=== PATIENT | male | born 1975 ===

== ENCOUNTER 2022-03-14 00:29 | Inpatient (IN) ==
[~2022-03-14 00:29] MED LIST: CLOPIDOGREL BISULFATE 75 MG TAB PO SCH
[2022-03-14] MEDS ORDERED: niCARdipine HCL INJ 2.5 MG/ML 10 ML AMP ONE (00:41)
[2022-03-14] MEDS ORDERED: HEPARIN (PORCINE) 1000 UNIT/ML 10 ML (CATH LAB USE ONLY) ONE ×2 (00:41→01:18)
[2022-03-14] MEDS ORDERED: NITROGLYCERIN/D5W 100MCG/ML 20ML SYR ONE (00:42)
[2022-03-14] MEDS ORDERED: fentaNYL citrate 100 MCG/2 ML VIAL ONE (00:42)
[2022-03-14] MEDS ORDERED: MIDAZOLAM HCL 1 MG/ML 2ML VIAL ONE (00:42)
--- NOTE | 2022-03-14 00:48 | Pre Anesthesia Assessment ---
Date of Service March 14, 2022 Pre Sedation Assessment Vital Signs Pulse Resp BP Pulse Ox O2 Del Method 03/14/22 00:38 92 Room Air 03/14/22 00:32 Room Air 03/14/22 00:32 81 20 140/99 92 Room Air 03/14/22 00:32 Room Air Cardiovascular RRR, no murmur, no edema Respiratory normal respiratory effort, lungs clear to auscultation Pre-Sedation Airway Assessment Smoking Status: Current every day smoker Hx Sleep Apnea: No Hx Difficult Intubation: No Short, Thick Neck: No Thyromental Distance: > or= 3.5 Finger Breadths Oral Cavity: + WNL Mallampati Class: III ASA: ASA4 Procedure Planning Contraindications for Sedation: none Current Medications Reviewed: Yes Notes The planned sedation has been discussed with the patient. Informed Consent was obtained. I have identified the patient, determined the appropriateness of sedation and have assessed the patient immediately prior to the procedure. All medicine(s) and interventions are by my order.
[2022-03-14 00:49] LABS: Hematocrit (blood only) 47.9 % (40.1-51.0); Hemoglobin 16.2 g/dl (14.0-18.0); Mean Corpuscular Hemoglobin 29.6 pg (25.0-34.0); Mean Corpuscular Hgb Conc 33.8 g/dL (32.0-36.0); Mean Corpuscular Volume 87.4 fL (80.0-100.0); Mean Platelet Volume 9.9 fL (9.4-12.4); Platelet Count 328 K/uL (130-400); RDW Coefficient of Variation 13.2 % (11.5-14.5); RDW Standard Deviation 42.1 fL (36.4-46.3); Red Blood Count 5.48 M/uL (4.63-6.08); White Blood Count 12.31 K/ul (4.8-10.8)
--- NOTE | 2022-03-14 00:51 | Emergency Department Note ---
Impression & Plan STEMI (ST elevation myocardial infarction) To [facility] with Dr. Salas ED Provider Note NAME: ARISTEO MCGRAW AGE: 46 SEX: M ARRIVES VIA: Ambulance INFORMANT: Patient ED PROVIDER(S): Lorna Rosenberg DO CHIEF COMPLAINT: Chest pain PLAN: Disposition: To the [facility] with Dr. Salas Condition: Critical MEDICAL DECISION MAKING: This is a 46-year-old male patient presents to the emergency department by EMS having chest pain. He was noted to have a STEMI. The patient will go to the [facility] with Dr. Salas. The patient remained hemodynamically stable in the emergency department until he went to the [facility]. He received aspirin and nitroglycerin from EMS. EMS called in with the report in route from [facility]. A heart alert was called based on the prehospital EKG of ST segment elevation in the inferior leads. I Emergently evaluated him upon his arrival here in the emergency department. Triage Nursing notes reviewed and agree with them Vital Signs: reviewed and stable Differential diagnosis: STEMI; aortic dissection; alcohol intoxication; GERD Diagnostics interpreted by me: ECG: Significant ST segment elevation in 2 3 and aVF with reciprocal changes in 1 and aVL; sinus bradycardia at a rate of Cardiac Monitoring: Normal sinus rhythm at a rate of 81 Laboratory studies: See below Imaging studies: As per my interpretation Chest x-ray: Patient did not take a good inspiration but there appears to be some vascular congestion. HPI: 46/M arrives for evaluation of chest pain. The patient describes waking from sleep with severe burning chest discomfort that he is never experienced before. The patient got episode in front of the air conditioner and felt as if he could not cool down. He states that the chest pain/pressure became worse and he called 911. His father had a massive [place] at the age of 50. Patient denies any health history personally. He does not see a doctor. He does drink alcohol. In fact tonight, he had 7-8 beers. The patient stopped drinking alcohol around 7 PM. ROS: See above HPI for pertinent positives & negatives. A total of 10 systems reviewed and were otherwise negative. PAST MEDICAL HISTORY:None PAST SURGICAL HISTORY:See Below FAMILY HISTORY:See Below SOCIAL HISTORY:The patient does drink alcohol fairly regularly; he is self- employed; he does smoke HOME MEDICATIONS:None ALLERGIES:None VITALS:See Below PHYSICAL EXAMINATION: HEENT: Head - normocephalic and atraumatic. Pupils are equal, round, and reactive to light. Extraocular eye muscles are intact, and sclera are anicteric. Nose - moist nasal mucosa without discharge. Mouth - moist buccal mucosa. Oropharynx is nonerythematous and there is no tonsillar exudate or edema noted. Neck: Supple; no JVD, or cervical lymphadenopathy Heart: Regular rate and rhythm. There is a normal S1 and S2 with no murmurs, clicks, or gallops appreciated. Lungs: Clear to auscultation bilaterally with no wheezes, rales, or rhonchi. Abdomen: Soft, completely nontender, nondistended, with good bowel sounds. There are no palpable pulsatile masses or hepatosplenomegaly. There is no guar ding, rigidity, or rebound noted. Extremities: No evidence of cyanosis, clubbing, or edema. There are easily palpable peripheral pulses. Skin: Pale, slightly cyanotic, cool, and dry with good turgor and no rashes. ED COURSE: Times/Reassessments: The patient was evaluated in room A1. A heart alert had been called. Laboratory studies were drawn. In addition IV site was established. A portable chest x-ray was performed. An order was placed for continuous cardiac monitoring. The patient was in a normal sinus rhythm at a rate of 81. Report was received from EMS at the bedside. Discussed the case with Dr. Salas at the bedside. I have personally spent greater than 30 minutes of critical care time in the direct management of this patient. This includes bedside care, interpretation of diagnostic studies, and testing, discussion with consultants, patient, and family members, and other required patient management activities. This 30 minutes is in excess of all separately billable procedures. 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 Beliefs That Will Affect Care: None marital status: Single Current Living Situation: Alone Feels Safe at Home: Yes Assistive Devices: None Allergies Allergies Allergy/AdvReac Type Severity Reaction Status Date / Time No Known Allergies Allergy Unverified 03/14/22 03:12 Results & Data (ED) Vital Signs Vital Signs - 24 hr 03/14/22 00:32 03/14/22 00:32 03/14/22 00:32 Pulse Rate 81 Pulse Rate from SpO2 Sensor Respiratory Rate 20 Respiratory Effort / Characteristics Non-Labored Non-Labored Respiratory Depth Normal Normal Blood Pressure 140/99 Blood Pressure Mean 112 Pulse Oximetry 92 Oxygen Delivery Method Room Air Room Air Room Air Sepsis Recent Fever Within 48 Hours No Sepsis New/Unexplained Change in Mental Status N/A Sepsis Action Taken by Nursing No Action Required Pulse Oximetry Post Tiitration 92 03/14/22 00:38 03/14/22 00:34 03/14/22 00:40 Pulse Rate 91 H 84 Pulse Rate from SpO2 Sensor 91 H 87 Respiratory Rate 27 H 15 Respiratory Effort / Characteristics Respiratory Depth Blood Pressure Blood Pressure Mean Pulse Oximetry 92 93 92 Oxygen Delivery Method Room Air Sepsis Recent Fever Within 48 Hours Sepsis New/Unexplained Change in Mental Status Sepsis Action Taken by Nursing Pulse Oximetry Post Tiitration 03/14/22 00:43 03/14/22 00:43 03/14/22 00:45 Pulse Rate 81 73 Pulse Rate from SpO2 Sensor 85 73 Respiratory Rate 25 H 23 Respiratory Effort / Characteristics Respiratory Depth Blood Pressure 135/92 Blood Pressure Mean 106 Pulse Oximetry 92 95 Oxygen Delivery Method Sepsis Recent Fever Within 48 Hours Sepsis New/Unexplained Change in Mental Status Sepsis Action Taken by Nursing Pulse Oximetry Post Tiitration Laboratory Data Result diagrams: 03/14/22 05:41 03/14/22 05:41 Lab Results 03/14/22 03/14/22 03/14/22 Range/Units 00:38 00:38 00:44 WBC 12.31 H (4.8-10.8) K/ul RBC 5.48 (4.63-6.08) M/uL Hgb 16.2 (14.0-18.0) g/dl Hct 47.9 (40.1-51.0) % MCV 87.4 (80.0-100.0) fL MCH 29.6 (25.0-34.0) pg MCHC 33.8 (32.0-36.0) g/dL RDW Std Deviation 42.1 (36.4-46.3) fL RDW Coeff of Abby 13.2 (11.5-14.5) % Plt Count 328 (130-400) K/uL MPV 9.9 (9.4-12.4) fL Immature Gran % (Auto) 0.5 % Neut % (Auto) 37.0 % Lymph % (Auto) 53.2 % [place] % (Auto) 5.9 % Eos % (Auto) 2.8 % Baso % (Auto) 0.6 % Neut # (Auto) 4.55 (1.4-6.5) K/uL Lymph # (Auto) 6.55 H (1.2-3.4) K/uL [place] # (Auto) 0.73 (0.24-0.82) K/uL Eos # (Auto) 0.35 (0-0.50) K/uL Baso # (Auto) 0.07 (0-0.2) K/uL Immature Gran # (Auto) 0.06 H (0.00-0.02) K/uL Activ Coag Time Kaolin (94-140) SECONDS Sodium 137 (136-145) mmol/L Potassium 3.4 L (3.5-5.1) mmol/L Chloride 99 (98-107) mmol/L Carbon Dioxide 28 (21-32) mmol/L Anion Gap 10 (3-11) BUN 10 (6-23) mg/dl Creatinine 1.08 (0.6-1.4) mg/dl Est Cr Clr Drug Dosing 95.7 ml/min Est GFR ( Amer) 94.2 ml/min Est GFR (Non-Af Amer) 81.3 ml/min BUN/Creatinine Ratio 9.3 L (10-20) Glucose 98 (70-99(Fasting)) mg/dl Calcium 9.2 (8.5-10.1) mg/dl Total Bilirubin 0.3 (0.2-1.0) mg/dl AST 20 (13-39) U/L ALT 21 (7-52) U/L Alkaline Phosphatase 77 (34-104) U/L Troponin I High Sens 33.9 H (0-20) pg/ml Total Protein 7.0 (6.0-8.3) gm/dl Albumin 4.5 (3.4-5.0) gm/dl Globulin 2.5 (2.5-4.0) gm/dl Albumin/Globulin Ratio 1.8 (0.9-2) Lipase 28 (11-82) U/L SARS-CoV-2, RNA, NAAT NEGATIVE (NEGATIVE) 03/14/22 03/14/22 Range/Units 01:14 01:42 WBC (4.8-10.8) K/ul RBC (4.63-6.08) M/uL Hgb (14.0-18.0) g/dl Hct (40.1-51.0) % MCV (80.0-100.0) fL MCH (25.0-34.0) pg MCHC (32.0-36.0) g/dL RDW Std Deviation (36.4-46.3) fL RDW Coeff of Abby (11.5-14.5) % Plt Count (130-400) K/uL MPV (9.4-12.4) fL Immature Gran % (Auto) % Neut % (Auto) % Lymph % (Auto) % [place] % (Auto) % Eos % (Auto) % Baso % (Auto) % Neut # (Auto) (1.4-6.5) K/uL Lymph # (Auto) (1.2-3.4) K/uL [place] # (Auto) (0.24-0.82) K/uL Eos # (Auto) (0-0.50) K/uL Baso # (Auto) (0-0.2) K/uL Immature Gran # (Auto) (0.00-0.02) K/uL Activ Coag Time Kaolin 248 H 237 H (94-140) SECONDS Sodium (136-145) mmol/L Potassium (3.5-5.1) mmol/L Chloride (98-107) mmol/L Carbon Dioxide (21-32) mmol/L Anion Gap (3-11) BUN (6-23) mg/dl Creatinine (0.6-1.4) mg/dl Est Cr Clr Drug Dosing ml/min Est GFR ( Amer) ml/min Est GFR (Non-Af Amer) ml/min BUN/Creatinine Ratio (10-20) Glucose (70-99(Fasting)) mg/dl Calcium (8.5-10.1) mg/dl Total Bilirubin (0.2-1.0) mg/dl AST (13-39) U/L ALT (7-52) U/L Alkaline Phosphatase (34-104) U/L Troponin I High Sens (0-20) pg/ml Total Protein (6.0-8.3) gm/dl Albumin (3.4-5.0) gm/dl Globulin (2.5-4.0) gm/dl Albumin/Globulin Ratio (0.9-2) Lipase (11-82) U/L SARS-CoV-2, RNA, NAAT (NEGATIVE) Administered Medications Aspirin (Aspirin 81 Mg Ectab) 81 mg PO [facility] Stop: 04/13/22 08:59 Last Admin: 03/14/22 07:53 Dose: 81 mg Documented By: VIRGIL Atorvastatin Calcium (Atorvastatin 40 Mg Tab) 80 mg PO [facility] Stop: 04/13/22 08:59 Last Admin: 03/14/22 07:53 Dose: 80 mg Documented By: VIRGIL Folic Acid (Folic Acid 1 Mg Tab) 1 mg PO [facility] Stop: 04/13/22 08:59 Last Admin: 03/14/22 08:25 Dose: 1 mg Documented By: VIRGIL Lisinopril (Lisinopril 5 Mg Tab) 5 mg PO [facility] Stop: 04/13/22 08:59 Last Admin: 03/14/22 07:53 Dose: 5 mg Documented By: VIRGIL Pantoprazole Sodium (Pantoprazole 40 Mg Tab) 40 mg PO [facility] Stop: 04/13/22 08:59 Last Admin: 03/14/22 07:53 Dose: 40 mg Documented By: VIRGIL Thiamine HCl (Thiamine Hcl 100 Mg Tab) 100 mg PO [facility] Stop: 04/13/22 08:59 Last Admin: 03/14/22 08:25 Dose: 100 mg Documented By: VIRGIL Ticagrelor (Ticagrelor 90 Mg Tab) 90 mg PO BID [facility] Stop: 03/14/22 23:55 Last Admin: 03/14/22 12:55 Dose: 90 mg Documented By: VIRGIL Discontinued Medications Atropine Sulfate (Atropine Sulfate 0.1 Mg/Ml 10ml Syr) Confirm Administered Dose 1 mg IV .STK-MED ONE Stop: 03/14/22 01:09 Last Admin: 03/14/22 02:26 Dose: Not Given Documented By: SUSAN Fentanyl Citrate (Fentanyl Citrate 100 Mcg/2 Ml Vial) Confirm Administered Dose 100 mcg .ROUTE .STK-MED ONE Stop: 03/14/22 00:43 Last Admin: 03/14/22 02:24 Dose: Not Given Documented By: SUSAN Heparin Sodium (Porcine) (Heparin (Porcine) 1000 Unit/Ml 10 Ml ([facility] Use Only)) Confirm Administered Dose 10,000 units .ROUTE .STK-MED ONE Stop: 03/14/22 00:42 Last Admin: 03/14/22 02:24 Dose: Not Given Documented By: SUSAN Heparin Sodium (Porcine) (Heparin (Porcine) 1000 Unit/Ml 10 Ml ([facility] Use Only)) Confirm Administered Dose 10,000 units .ROUTE .STK-MED ONE Stop: 03/14/22 01:19 Last Admin: 03/14/22 02:26 Dose: Not Given Documented By: SUSAN Heparin Sodium/Sodium Chloride (Heparin In Nss Infusion 1000 Unit/500 Ml (2 U/Ml) Bag) Confirm Administered Dose 3,000 units IV .STK-MED ONE Stop: 03/14/22 00:43 Last Admin: 03/14/22 02:25 Dose: Not Given Documented By: SUSAN Sodium Chloride (Nss 1000ml) 1,000 mls @ 100 mls/hr IV .Q10H [facility] Stop: 03/14/22 11:44 Last Infusion: 03/14/22 10:44 Dose: 0 mls/hr Documented By: Admin: 03/14/22 02:26 Dose: 100 mls/hr Documented By: SUSAN Metoprolol Tartrate (Metoprolol Tartrate 25 Mg Tab) 12.5 mg PO BID [facility] Stop: 04/13/22 08:59 Last Admin: 03/14/22 08:25 Dose: 12.5 mg Documented By: Admin: 03/14/22 03:28 Dose: 12.5 mg Documented By: VIRGIL Metoprolol Tartrate (Metoprolol Tartrate 25 Mg Tab) 12.5 mg PO ONE ONE Stop: 03/14/22 11:20 Last Admin: 03/14/22 12:54 Dose: 12.5 mg Documented By: VIRGIL Midazolam HCl (Midazolam Hcl 1 Mg/Ml 2ml Vial) Confirm Administered Dose 2 mg .ROUTE .STK-MED ONE Stop: 03/14/22 00:43 Last Admin: 03/14/22 02:25 Dose: Not Given Documented By: SUSAN Miscellaneous Information (Patient's Allergy Info Needs Entered) 1 each N/A Q30M [facility] Stop: 04/13/22 02:59 Last Admin: 03/14/22 03:13 Dose: 1 each Documented By: VIRGIL Nicardipine HCl (Nicardipine Hcl Inj 2.5 Mg/Ml 10 Ml Amp) Confirm Administered Dose 25 mg .ROUTE .[email or web address] ONE Stop: 03/14/22 00:42 Last Admin: 03/14/22 02:24 Dose: Not Given Documented By: SUSAN Nitroglycerin/Dextrose (Nitroglycerin/D5w 100mcg/Ml 20ml Syr) Confirm Administered Dose 2,000 mcg .ROUTE .[employer]-MED ONE Stop: 03/14/22 00:43 Last Admin: 03/14/22 02:25 Dose: Not Given Documented By: SUSAN Ticagrelor (Ticagrelor 90 Mg Tab) Confirm Administered Dose 180 mg .ROUTE .[employer]- [employer] ONE Stop: 03/14/22 01:44 Last Admin: 03/14/22 01:51 Dose: 180 mg Documented By: ALLAN Imaging Data Radiologist's Impression: Chest X-Ray 03/14/22 00:35 XR chest 1V portable CLINICAL HISTORY: Atypical chest pain. Shortness of breath. COMPARISON STUDY: No previous studies for comparison. FINDINGS: Lung volumes are diminished. Old bilateral rib fractures are present as well as an old right clavicular fracture. There is no pneumothorax or pleural effusion. Mild interstitial thickening is present. Cardiac size is at upper limits of normal. Patient is rotated. Linear bibasilar opacities favor atelectasis. IMPRESSION: 1. Interstitial thickening. This may reflect mild interstitial edema. 2. Rotated study. Low lung volumes. ACT 112: Negative or not required by law. Electronically signed by: Antonio Verde M.D. 03/14/2022 6:59 AM Discharge Plan Visit Data Chief Complaint: Heart Alert ED Provider: Lorna Rosenberg Discharge Problem: STEMI (ST elevation myocardial infarction) Patient Disposition: Admitted As Inpatient Discharge Instructions Interventions: ED Discharge Assessment Last Done: 03/14/22 00:50 : STEMI (ST elevation myocardial infarction) Qualifiers: Involved coronary artery: unspecified coronary artery Qualified Code(s): I21.3 - ST elevation (STEMI) myocardial infarction of unspecified site
--- NOTE | 2022-03-14 00:51 | Cardiology Consultation ---
Date of Consultation March 14, 2022 Assessment & Plan (1) STEMI (ST elevation myocardial infarction): Presentation consistent with inferior STEMI and recommend proceeding with emergent cardiac catheterization and likely primary PCI. No apparent contraindications to procedure. Discussed risks, benefits, alternatives of procedure with patient and they are willing to proceed. Further recommendations pending findings of coronary angiography. History of Present Illness History of Present Illness Mr. Elise is a 46-year-old man here with acute chest pain and ECG concerning for acute FL. Patient seen emergently in the ED after heart alert activated en route. No prior cardiac history. Patient does not doctor and is currently not taking any medications. Reports a family history of premature CAD with a father who had an FL at age 50. He is an active smoker. Reports daily heavy alcohol use, drank 8 beers earlier today. This evening patient was awoken from sleep with substernal chest pain radiating to bilateral arms. Pain associated with nausea. Denies having similar symptoms in the past. EMS contacted soon after symptoms onset. ECG showed sinus rhythm with inferior ST elevations. Hemodynamically stable on arrival. Active chest pain approximately 5 out of 10. Given slntg, aspirin, fentanyl in ED. Social history: Works in construction doing remodeling. Patient History Social History Smoking Status: Current every day smoker Tobacco Type: Cigarettes Feels Safe at Home: Yes Review of Systems Review of Systems: Not completed in the setting of emergent situation Physical Exam Physical Exam: General: Uncomfortable HEENT: Sclerae anicteric Lungs: Clear anteriorly Cardiac: Regular rate and rhythm, no murmurs. Vascular: 2+ radial Abdomen: Soft, nontender Extremities: Well perfused, no peripheral edema Neuro: Nonfocal Psych: Alert orient x3, normal affect and mood Results & Data ([facility]) Vital Signs (Past 12 Hours) Vital Signs Pulse Resp BP Pulse Ox O2 Del Method 03/14/22 00:38 92 Room Air 03/14/22 00:32 Room Air 03/14/22 00:32 81 20 140/99 92 Room Air 03/14/22 00:32 Room Air PG Care Time/CCT Total # of Minutes Spent Total Time Spent with Patient: Total time spent is greater than 50% in coordination of care (as documented) at patient's floor/unit and/or counseling patient: Coding Level of Care Code 51191 Inpt Consult Level 4 Diagnoses STEMI (ST elevation myocardial infarction) I21.3
[2022-03-14] MEDS ORDERED: ATROPINE SULFATE 0.1 MG/ML 10ML SYR IV ONE (01:08)
[2022-03-14 01:15] LABS: Albumin Globulin Ratio 1.8 (0.9-2); Albumin Level 4.5 gm/dl (3.4-5.0); BUN Creatinine Ratio 9.3 (10-20); Bilirubin,Total 0.3 mg/dl (0.2-1.0); Calcium 9.2 mg/dl (8.5-10.1); Creatinine Clr Calc Pharmacy 95.7 ml/min; Est GFR (African American) 94.2 ml/min; Est GFR (Non-African American) 81.3 ml/min; Globulin 2.5 gm/dl (2.5-4.0); Potassium 3.4 mmol/L (3.5-5.1)
[2022-03-14 01:19] LABS: Troponin I High Sensitivity 33.9 pg/ml (0-20)
[2022-03-14] MEDS ORDERED: TICAGRELOR 90 MG TAB ONE (01:43)
[2022-03-14] MEDS ORDERED: ACETAMINOPHEN 325 MG TAB PO PRN (01:44)
[2022-03-14] MEDS ORDERED: ONDANSETRON INJ 2 MG/ML 2 ML VIAL IV PRN (01:44)
[2022-03-14] MEDS ORDERED: SODIUM CHLORIDE 0.9% 1000ML 1,000 ML IV SCH (01:45)
[2022-03-14] MEDS ORDERED: ICU PROTOCOL FOR HYPERGLYCEMIA PRN (01:51)
[2022-03-14 01:54] LABS: Basophils # (auto) 0.07 K/uL (0-0.2); Basophils % (auto) 0.6 %; Eosinophils # (auto) 0.35 K/uL (0-0.50); Eosinophils % (auto) 2.8 %; Immature Granulocytes # (auto) 0.06 K/uL (0.00-0.02); Immature Granulocytes % (auto) 0.5 %; Lymphocytes # (auto) 6.55 K/uL (1.2-3.4); Lymphocytes % (auto) 53.2 %; Monocytes # (auto) 0.73 K/uL (0.24-0.82); Monocytes % (auto) 5.9 %; Neutrophils # (auto) 4.55 K/uL (1.4-6.5)
--- NOTE | 2022-03-14 01:56 | History & Physical Report ---
Date of Service March 14, 2022 Assessment & Plan (1) STEMI (ST elevation myocardial infarction): Plan: Bryon Elise is a 46-year-old male with no known past medical history who presented as a heart alert. Found to have inferior AR now status post PCI of proximal to mid RCA with 3 overlapping ALEC. STEMI Status post 3 ALEC to proximal to mid RCA due to 100% mid RCA occlusion Also demonstrated severe and on culprit coronary artery disease with 50 to 60% left main disease extending into LAD/circumflex, 50% ostial LAD, 50% mid LAD, 50% ostial circumflex Cardiology recommendations: -ICU admission -Loaded with ticagrelor -Continue DAPT for at least 1 year -Trend troponin until peak, check echo -Uptitrate beta-raz/TEMI as BP allows -High-dose statin -Consult cardiac rehab -Plan for outpatient CT surgery evaluation for possible CABG for noncritical left main disease Digital Media Planner consulted Troponins every 6 as above A1c, lipid profile with a.m. labs Alcohol use disorder Patient admits to heavy alcohol use of at least 6 beers daily Last drank 8-10 beers night of 03/13 prior to arrival in ED With drinking soda recently, alcohol withdrawal less concerning at this time Monitor for signs of withdrawal, especially if needing admission for longer than 48 hours after last drink DVT prophylaxis: No chemoprophylaxis at this time, as above on DAPT for STEMI Diet: Heart healthy Dispo: Admit to ICU for monitoring post cath/PCI CODE STATUS: Full History of Present Illness Primary Care Provider: NO PCP Bryon Elise is a 46-year-old male with no known past medical history who presented earlier tonight as a heart alert. He was evaluated by cardiology and found to have an inferior STEMI. Recommendation was made to proceed with emergent cardiac catheterization and primary PCI. Catheterization found 100% mid RCA occlusion as well as severe nonculprit CAD with 50 to 60% left main disease extending into LAD/circumflex, 50% ostial LAD, 50% mid LAD, 50% ostial circumflex. Now status post successful PCI of proximal to mid RCA with 3 overlapping ALEC. The patient was seen at bedside and was awake/alert and conversing appropriately. He stated that he did not have any current chest pain, shortness of breath, headache, dizziness, nausea, vomiting, abdominal pain, weakness, numbness, tingling. He did admit that he is a heavy drinker of at least 6 beers daily. States that he did have about 8-10 beers before presenting to the ED tonight. 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 NAD. HEENT: PERRL, EOMI. Moist mucous membranes. NECK: No JVD. No lymphadenopathy. CHEST/LUNGS: CTAB A/P. No crackles, wheezes, rales, rhonchi. HEART: RRR. No m/g/r. ABDOMEN: NT/ND, soft. BS+ x4 EXTREMITIES: No cyanosis, no clubbing, no edema SKIN: Warm and dry. No rashes or lesions. PSYCHIATRIC: Euthymic affect, no SI, no pressured speech, no hallucinations NEUROLOGIC: No FND. Moves all 4 extremities. Results & Data Results & Data ([facility]) Vital Signs (Past 12 Hours) Vital Signs Pulse Resp BP Pulse Ox O2 Del Method 03/14/22 00:43 81 25 H 92 03/14/22 00:43 135/92 03/14/22 00:40 84 15 92 03/14/22 00:34 91 H 27 H 93 03/14/22 00:38 92 Room Air 03/14/22 00:32 Room Air 03/14/22 00:32 81 20 140/99 92 Room Air 03/14/22 00:32 Room Air Code Status & VTE Plan VTE Prophylaxis Plan VTE Prophylaxis will be ordered: Yes Critical Care Time 40 minutes Supervising Physician Co-Signing Physician Notes Attending addendum: I have physically seen this patient, have supervised the medical residents activities, and agree with the H&P unless as otherwise noted. Assessment and Plan: Acute inferior STEMI- Status post RCA stents x3 by interventional cardiology Dr. Mikie Salas, when taken to emergent cardiac catheterization as a heart alert from the ED DAPT and all cardiac meds per Dr. Salas Alcohol abuse/dependency- Placed on AWSS protocol with IV Ativan Monitor closely for symptoms of withdrawal Remainder of orders and notations as noted Resident Activity Tracking Resident Involvement: Resident Care Provided Care Provided: Adult Hospital Medicine
--- NOTE | 2022-03-14 02:04 | Cardiac Catheterization ---
[facility] Data: Literature Teacher Cardiac Status Clinical evaluation leading to the procedure CAD Presenation: STEMI Anginal Classification: CCS IV Diagnostic Physicians Name: Mikie Salas MD Closure Device Recommendations: PCI without planned CABG Cardiac Cath Procedure Full Procedure Date March 14, 2022 Pre-Procedure Diagnosis Pre-Procedure Diagnosis: STEMI AUC Score AUC Score: 9 Post-Procedure Diagnosis Post-Procedure Diagnosis: Severe CAD, Successful PCI and Normal Intracardiac Pressures Procedure(s) Performed Procedure(s) Performed: Coronary Angiography, Left Heart Cath and Drug Eluting Stent Ships Equipment Engineer Mikie Salas MD Liability Claims Examiner(s) Real Estimated Blood Loss Estimated Blood Loss: 15 Medication(s) Medication(s): Fentanyl, Heparin, Lidocaine 1%, Nicardipine, Nitroglycerin and Versed Medication(s): Ticagrelor Summary of Findings Indication: STEMI/Heart Alert Access: 6 Fr right radial artery Catheters: Healthy Humans left 3.5 guide, pigtail Findings: LM -Short, 50 to 60% disease extending from ostium into LAD/circumflex LAD -medium caliber,, 50% ostial LAD, 50% mid segment disease after second septal remainder of vessel medium caliber without significant disease and extends around apex. Circumflex -large caliber, 50% ostial, mid/distal vessel without significant disease, 20 to 30% proximal large OM 3 RCA -dominant, medium caliber, 50% proximal, 100% acute mid occlusion LVEDP -9 -- PCI -- Antithrombotic therapy: Heparin, ticagrelor Procedure: RCA cannulated with Ikari left 3.5 guide BMW wire passed across lesion into distal vessel Mid RCA lesion predilated with 2.5 compliant balloon Dilated lesion stented with 3.0 x 15 mm Natanael drug-eluting stent Stent post-dilated with 3.5 noncompliant balloon IC vasodilators administered for spasm Residual 50% proximal stenosis covered with second ALEC (3.5 x 12 mm [place]) overlapping proximal aspect of initial stent. Stent postdilated with stent balloon Additional IC vasodilators administered. Questionable residual disease at distal aspect of stent Third short ALEC (3.0 x 8 mm Natanael) placed to mid RCA overlapping distal aspect of initial stent. Stent postdilated with stent balloon Post procedure SHELBIE 3 flow, stents well expanded with minimal residual stenosis and no apparent cardiac complications. Arterial Closure: TR band Summary: 1. Inferior STEMI/acute 100% mid RCA occlusion 2. Severe nonculprit coronary artery disease -50 to 60% left main disease extending into LAD/circumflex 50% ostial LAD, 50% mid LAD 50% ostial circumflex 3. Normal intracardiac filling pressure 4. Successful PCI of proximal to mid RCA with 3 overlapping drug-eluting stents (3.5 x 12, 3.0 x 15, 3.0 x 8 mm Natanael; postdilated with 3.5 NC). Recommendations: Admit to ICU for continued monitoring Loaded with ticagrelor Continue dual-antiplatelet therapy for at least 1 year. Trend troponins until peak, Check Echo Uptitrate beta-raz/TEMI as BP allows High-dose statin Consult cardiac Rehab Plan for outpatient CT surgery evaluation for possible CABG for noncritical left main disease Hemodynamics Rest Ao:: 112/79/111 Final Ao: 113/79/91 LV: 113/9 Recommendations Recommendations: PCI without planned CABG Specimens Specimens: None Radiation Exposure (mGy) 2807 Contrast (mls) 80 Drains Drains: None Anesthesia Moderate 7028-7289 Procedural Complication(s) None Disposition ICU I attest to the content of the Intraoperative Record and any orders documented therein. Any exceptions are noted below. [facility] Card Cath Procedure Codes Cardiac Catheterization Procedure 1: Cardiovascular Cath Procedures: 54438 Coronaries and LHC (+/-LV) Moderate Sedation Procedure 1: Sedation/Anesthesia: 84799 Mod Sedation by the same physician;Init15 Min Child Age 5 & Up Procedure 2: Sedation/Anesthesia: 78647 Mod Sedation by the same physician; Ea [id number] Minutes Stenting Procedure 1: Cardiovascular Stent Procedures: 26736 Perc transluminal revascularization of acute sub/total occl, aMI PG Care Time/CCT Total # of Minutes Spent Total Time Spent with Patient: Total time spent is greater than 50% in coordination of care (as documented) at patient's floor/unit and/or counseling patient:
--- NOTE | 2022-03-14 02:34 | Critical Care Consultation ---
Date of Consultation March 14, 2022 Assessment & Plan (1) Admitted to intensive care unit: Reason Critically Ill: 46-year-old male presenting with acute inferior STEMI who is status post PTCI with ALEC x3 to the RCA requiring close monitoring and management status post coronary intervention. NEURO - * CAM ICU: NEGATIVE * Alcohol abuse: * Encourage cessation. * Patient likely to be discharged within the next 48 hours. Can certainly have further discussion regarding need to pneumatic withdrawal-like symp toms. Would likely provide beer if the patient needed. CARDIAC/VASCULAR - * Acute inferior STEMI s/p PTCI w/ ALEC x3 to the RCA: * Also found to have LAD disease to be addressed at a later date. * Patient asymptomatic s/p intervention. * Trend Troponin * AM Echo * ASCVD Rx per typical. * EKG: NSR @ 80 bpm. Inferior STEMI w/ ST elevations in leads II, III, and aVf. QTc 463 ms. * Monitor on telemetry. RESPIRATORY - * No h/o pulmonary disease. * Daily smoker (1 ppd) * Encouraged smoking cessation. GI/NUTRITION - * AHA Diet RENAL/LYTES - * No significant electrolyte derangements. - * No concerns at this time. ENDO - * No h/o DM or Thyroid Dz. * BSGs per unit protocol. ISS --> gtt per unit policy. HEME - * Stable H&H ID - * No concerns for infections at this time. 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 Hopeful for early ambulation. * SCDs I have personally spent 32 minutes of critical care time in the direct manage ment of this patient. This is a life/limb threatening event. This includes time spent evaluating patient, direct bedside care, chart review, placing orders, interpretation of diagnostic studies, discussion with consultants, patient, and family members, as well as other required patient management activities. This time is exclusive of all separately billable procedures, and teaching time and separate from and in addition to any other critical care service time. Thank you for allowing us to participate in the care of this patient. Please refer to my attending physician's documentation for any further recommendations. (2) STEMI (ST elevation myocardial infarction): (3) Cigarette smoker: (4) Alcohol abuse: History of Present Illness Attending Physician: Aaron Nails MD History of Present Illness Patient is a 46-year-old male with no reported past medical history who presented to the emergency department earlier this morning with complaints of centralized chest pain with pain rating to the bilateral arms. He states that he had fallen asleep and was awoken with this chest pain. He had never experienced similar symptoms in the past. He reports that his pain was so intense that he went outside and his boxer shorts and waited for the ambulance. Patient was made a heart alert in route to the emergency department. He was taken immediately to the catheterization suite where he underwent PCI with ALEC x3 placement to the RCA. Status post intervention, patient is without pain. There was also LEFT-sided coronary disease felt to be chronic and will be addressed in the outpatient setting. Upon evaluation in the ICU, the patient is awake, alert, and oriented. He denies complaints of chest pain at this time. He reports feeling much better. Patient reports significant history of cigarette smoking. He smokes approximately 1 pack/day. Additionally, the patient reports drinking at least 6, 16 ounce beers per day. He is uncertain of any withdrawal symptoms as he has never been without drinking for more than a few days. Allergies Allergy/AdvReac Type Severity Reaction Status Date / Time No Known Allergies Allergy Unverified 03/14/22 03:12 Patient History Social History Smoking Status: Current every day smoker Tobacco Type: Cigarettes Second Hand Exposure: Yes; Do You Dip or Chew Tobacco: No; Tobacco Cessation Education Requested by Patient: Yes Hx Alcohol Use: Yes Alcohol type: beer Hx Substance Use: No Preferred Language: Spanish Communication Ability: Effective Platform Architect Required: No Beliefs That Will Affect Care: None marital status: Single Current Living Situation: Alone Other Information That Helps Us Care for You: No Feels Safe at Home: Yes Safety Concerns: Feels Safe At This Time Assistive Devices: None Review of Systems Review of Systems: A complete 10 point review of systems was reviewed with the patient with pertinent positives and negatives as per history of present illness. All else were negative. Physical Exam Physical Exam: VITAL SIGNS - Vital signs and nursing notes were reviewed. GENERAL - 46-year-old male appearing his stated age who is in no acute distress. Communicates well with provider and answers questions appropriately. HEAD - NC/AT. EYES - PERRL with EOMI bilaterally. Sclera anicteric. EARS - No deformities of external structures noted on gross examination bilaterally. NOSE - Midline and without cyanosis. MOUTH/OROPHARYNX - Without perioral cyanosis. Buccal mucosa pink and moist. NECK - Neck with FROM. LUNGS - Chest wall symmetric without accessory muscle use, intercostals retractions, or central cyanosis. Normal vesicular breath sounds CTA B/L. No wheezes, rales, or rhonchi appreciated. CARDIAC - RRR with S1/S2. No murmur, rubs, or gallops appreciated. No reproducible tenderness to palpation appreciated over the anterior chest wall. ABDOMEN - Abdominal contour flat without pulsations or visible masses. BS normoactive all four quadrants. No tenderness, palpable masses, hepatosplenomegaly, or ascites noted. EXTREMITIES - No clubbing or peripheral cyanosis. No pretibial edema present. +3/5 radial and dorsalis pedis pulses palpated throughout. +5/5 strength noted in UE/LE bilaterally. NEUROLOGIC - Cranial nerves II through XII grossly intact. PSYCH - A&Ox3 and cooperates fully with examiner. Pt is very pleasant and interacts well with examiner. Results & Data Results & Data ([facility]) Vital Signs (Past 12 Hours) Vital Signs Temp Pulse Resp BP Pulse Ox O2 Del Method 03/14/22 01:53 36.7 C 03/14/22 02:15 101 H 28 H 93 03/14/22 02:15 36.7 C 117/73 03/14/22 02:08 99 H 30 H 94 03/14/22 00:45 73 23 95 03/14/22 01:53 101 H 03/14/22 00:43 81 25 H 92 03/14/22 00:43 135/92 03/14/22 00:40 84 15 92 03/14/22 00:34 91 H 27 H 93 03/14/22 00:38 92 Room Air 03/14/22 00:32 Room Air 03/14/22 00:32 81 20 140/99 92 Room Air 03/14/22 00:32 Room Air Coding Level of Care Code Critical Care 1st 30-74 mins Diagnoses Admitted to intensive care unit Z78.9 STEMI (ST elevation myocardial infarction) I21.3 Cigarette smoker F17.210 Alcohol abuse F10.10 Time Spent (min) 32
[2022-03-14] MEDS ORDERED: Patient's ALLERGY Info needs ENTERED SCH (03:00)
[2022-03-14] MEDS: METOPROLOL TARTRATE 25 MG TAB PO SCH ×3 (03:28→20:05)
[2022-03-14 06:20] LABS: Basophils # (auto) 0.04 K/uL (0-0.2); Basophils % (auto) 0.4 %; Eosinophils # (auto) 0.09 K/uL (0-0.50); Eosinophils % (auto) 0.9 %; Hematocrit (blood only) 44.2 % (40.1-51.0); Hemoglobin 15.2 g/dl (14.0-18.0); Immature Granulocytes # (auto) 0.05 K/uL (0.00-0.02); Immature Granulocytes % (auto) 0.5 %; Lymphocytes # (auto) 2.91 K/uL (1.2-3.4); Lymphocytes % (auto) 27.6 %; Mean Corpuscular Hemoglobin 29.9 pg (25.0-34.0); Mean Corpuscular Hgb Conc 34.4 g/dL (32.0-36.0); Mean Platelet Volume 10.3 fL (9.4-12.4); Monocytes # (auto) 0.58 K/uL (0.24-0.82); Monocytes % (auto) 5.5 %; Neutrophils # (auto) 6.87 K/uL (1.4-6.5); Neutrophils % (auto) 65.1 %; Platelet Count 248 K/uL (130-400); RDW Coefficient of Variation 13.3 % (11.5-14.5); RDW Standard Deviation 42.5 fL (36.4-46.3); Red Blood Count 5.08 M/uL (4.63-6.08); White Blood Count 10.54 K/ul (4.8-10.8)
[2022-03-14 06:46] LABS: Anion Gap 10 (3-11); BUN Creatinine Ratio 13.6 (10-20); Blood Urea Nitrogen 11 mg/dl (6-23); Calcium 8.8 mg/dl (8.5-10.1); Carbon Dioxide 21 mmol/L (21-32); Chloride 103 mmol/L (98-107); Chol HDL Ratio 4.8 (0-5); Cholesterol 222 mg/dl (0-200); Creatinine Clr Calc Pharmacy 127.5 ml/min; Est GFR (African American) 122.7 ml/min; Est GFR (Non-African American) 105.8 ml/min; Glucose 98 mg/dl (70-99(Fasting)); HDL Cholesterol 46 mg/dl; LDL Cholesterol Direct 155 mg/dl; Potassium 4.1 mmol/L (3.5-5.1); Sodium 134 mmol/L (136-145); Triglycerides 475 mg/dl (0-150)
--- NOTE | 2022-03-14 07:00 | XRay Report ---
XR chest 1V portable CLINICAL HISTORY: Atypical chest pain. Shortness of breath. COMPARISON STUDY: No previous studies for comparison. FINDINGS: Lung volumes are diminished. Old bilateral rib fractures are present as well as an old righ t clavicular fracture. There is no pneumothorax or pleural effusion. Mild interstitial thickening is present. Cardiac size is at upper limits of normal. Patient is rotated. Linear bibasilar opacities fa vor atelectasis. IMPRESSION: 1. Interstitial thickening. This may reflect mild interstitial edema. 2. Rotated study. Low lung volumes. ACT 112: Negative or not required by law. Electronically signed by: Antonio Verde M.D. 03/14/2022 6:59 AM
[2022-03-14] MEDS: PANTOprazole 40 MG TAB PO SCH (07:53)
[2022-03-14] MEDS: ATORVASTATIN 40 MG TAB PO SCH (07:53)
[2022-03-14] MEDS: lisinopril 5 MG TAB PO SCH (07:53)
[2022-03-14] MEDS: ASPIRIN 81 MG ECTAB PO SCH (07:53)
[2022-03-14 08:14] LABS: Estimated Average Glucose 120 mg/dl; Hemoglobin A1C 5.8 % (4.5-5.6)
[2022-03-14] MEDS: THIAMINE HCL 100 MG TAB PO SCH (08:25)
[2022-03-14] MEDS: FOLIC ACID 1 MG TAB PO SCH (08:25)
--- NOTE | 2022-03-14 10:25 | Post Anesthesia Assessment ---
Date of Service March 14, 2022 Post Sedation Assessment Vital Signs Temp Pulse Pulse Resp BP BP Pulse Ox 03/14/22 07:58 85 03/14/22 05:30 85 19 96 03/14/22 05:30 139/83 03/14/22 05:15 81 19 89 L 03/14/22 05:15 115/77 03/14/22 05:00 98 H 17 95 03/14/22 05:00 116/82 03/14/22 04:45 91 H 18 93 03/14/22 04:30 91 H 24 93 03/14/22 04:30 133/85 03/14/22 04:15 102 H 20 93 03/14/22 04:15 137/83 03/14/22 04:00 102 H 20 94 03/14/22 04:00 136/84 03/14/22 03:45 125/77 03/14/22 03:45 89 21 94 03/14/22 03:30 97 H 24 96 03/14/22 03:30 122/80 03/14/22 03:15 103 H 18 97 03/14/22 03:15 118/84 03/14/22 03:00 91 H 21 96 03/14/22 03:00 115/75 03/14/22 02:45 94 H 26 H 95 03/14/22 02:45 98.4 F 117/77 03/14/22 02:30 102 H 19 95 03/14/22 03:00 98.4 F 03/14/22 02:02 98.2 F 91 H 22 117/77 96 03/14/22 02:34 97.3 F L 18 126/77 94 03/14/22 01:53 98.1 F 03/14/22 02:15 101 H 28 H 93 03/14/22 02:15 98.1 F 117/73 03/14/22 02:08 99 H 30 H 94 03/14/22 00:45 73 23 95 03/14/22 01:53 101 H 03/14/22 00:43 81 25 H 92 03/14/22 00:43 135/92 03/14/22 00:40 84 15 92 03/14/22 00:34 91 H 27 H 93 03/14/22 00:38 92 03/14/22 00:32 03/14/22 00:32 81 20 140/99 92 03/14/22 00:32 O2 Del Method 03/14/22 07:58 03/14/22 05:30 03/14/22 05:30 03/14/22 05:15 03/14/22 05:15 03/14/22 05:00 03/14/22 05:00 03/14/22 04:45 Room Air 03/14/22 04:30 03/14/22 04:30 03/14/22 04:15 Room Air 03/14/22 04:15 03/14/22 04:00 Room Air 03/14/22 04:00 03/14/22 03:45 03/14/22 03:45 03/14/22 03:30 03/14/22 03:30 03/14/22 03:15 03/14/22 03:15 03/14/22 03:00 03/14/22 03:00 03/14/22 02:45 03/14/22 02:45 03/14/22 02:30 03/14/22 03:00 03/14/22 02:02 Room Air 03/14/22 02:34 Room Air 03/14/22 01:53 03/14/22 02:15 03/14/22 02:15 03/14/22 02:08 03/14/22 00:45 03/14/22 01:53 03/14/22 00:43 03/14/22 00:43 03/14/22 00:40 03/14/22 00:34 03/14/22 00:38 Room Air 03/14/22 00:32 Room Air 03/14/22 00:32 Room Air 03/14/22 00:32 Room Air Recovery Score Activity: Moves 4 extremities Respiration: Deep Breath/Cough Circulation: +/-20% PreAnes Value Consciousness: Fully Awake Oxygen Saturation: O2 needed for >90% Discharge Sedation Level of Care: Fast Track Phase II Post Sedation Plan On clinical assessment, the patient appears to have tolerated the sedation without complications. Patient is recovering as anticipated. Patient will continue to be monitored by nursing and may be discharged when sedation discharge criteria are met per below protocol. Upon Completions of procedure up to 15 minutes continue every 5 minute vital signs and the P.A.R. score; then discharge to a Phase I or Fast Track to Phase II per the following guidelines: * Discharge Patient to appropriate Phase II area if PAR is 8 or greater or return to pre- procedure baseline. The post - procedure orders will be as directed. * If PAR score is less than 8 or not return to pre-procedure baseline then patient will follow Phase I monitoring till PAR is reached for Phase II. The Phase I may be done in procedure room or may call to secure a Phase I area. * If naloxone or flumazenil are used for reversal, hold in Phase I for continued monitoring from when last reversal dose was given for a minimum of 60 minutes or longer pending the nurse and/or physician discretion of patient condition before discharge to Phase II. Please call the Sedation Physician to re-evaluate and complete post-note for discharge to Phase II area. Do NOT discharge from procedure sedation or Phase 1 until post- sedation evalua tion note is complete by procedure /sedation MD Sedation Discharge Instructions to be given to the patient at discharge to home.
--- NOTE | 2022-03-14 11:02 | Cardiology Progress Note ---
Date of Service March 14, 2022 Assessment & Plan (1) CAD (coronary artery disease): Plan: Acute mid RCA occlusion post PCI with 3 ALEC Severe residual left main disease extending into LAD/circumflex 2. Preserved LV functioninferior wall motion abnormality 3. Frequent PVCs 4. Dyslipidemia 5. Tobacco abuse 6. Alcohol abuse Chest pain-free this morning, hemodynamically stable, no signs of heart failure. Frequent PVCs improved with beta-raz No apparent exercise complications Preserved LV function on echo today Continue DAPT with aspirin, ticagrelorwith insurance issues transition to clopidogrel prior to discharge Increase metoprolol to 25 mg twice daily. Continue current lisinopril Continue current statin Smoking cessation From a cardiac standpoint okay with transfer to telemetry. Likely discharge tomorrow Admission and Anticipated Discharge Date Admission Date: March 14, 2022 Subjective Feeling well today. Denies any recurrent chest pain. Breathing at baseline. Telemetry reviewedfrequent PVCs, bigeminy overnight, improved this morning. Heart rates in the 70s to 80s currently Review of Systems Review of Systems: All systems reviewed & are unremarkable except as noted in HPI & below Physical Exam Physical Exam: General: Comfortable HEENT: Sclerae anicteric Lungs: Clear anteriorly Cardiac: Regular rate and rhythm, no murmurs. Vascular: Right radial artery access site with no ecchymosis, hematoma. Distal pulse and sensation intact. Abdomen: Soft, nontender Extremities: Well perfused, no peripheral edema Neuro: Nonfocal Psych: Alert orient x3, normal affect and mood Results & Data ([facility]) Vital Signs (Past 12 Hours) Vital Signs Temp Pulse Pulse Resp BP BP Pulse Ox 03/14/22 10:55 85 03/14/22 07:58 85 03/14/22 05:30 85 19 96 03/14/22 05:30 139/83 03/14/22 05:15 81 19 89 L 03/14/22 05:15 115/77 03/14/22 05:00 98 H 17 95 03/14/22 05:00 116/82 03/14/22 04:45 91 H 18 93 03/14/22 04:30 91 H 24 93 03/14/22 04:30 133/85 03/14/22 04:15 102 H 20 93 03/14/22 04:15 137/83 03/14/22 04:00 102 H 20 94 03/14/22 04:00 136/84 03/14/22 03:45 125/77 03/14/22 03:45 89 21 94 03/14/22 03:30 97 H 24 96 03/14/22 03:30 122/80 03/14/22 03:15 103 H 18 97 03/14/22 03:15 118/84 03/14/22 03:00 91 H 21 96 03/14/22 03:00 115/75 03/14/22 02:45 94 H 26 H 95 03/14/22 02:45 98.4 F 117/77 03/14/22 02:30 102 H 19 95 03/14/22 03:00 98.4 F 03/14/22 02:02 98.2 F 91 H 22 117/77 96 03/14/22 02:34 97.3 F L 18 126/77 94 03/14/22 01:53 98.1 F 03/14/22 02:15 101 H 28 H 93 03/14/22 02:15 98.1 F 117/73 03/14/22 02:08 99 H 30 H 94 03/14/22 00:45 73 23 95 03/14/22 01:53 101 H 03/14/22 00:43 81 25 H 92 03/14/22 00:43 135/92 03/14/22 00:40 84 15 92 03/14/22 00:34 91 H 27 H 93 03/14/22 00:38 92 03/14/22 00:32 03/14/22 00:32 81 20 140/99 92 03/14/22 00:32 O2 Del Method 03/14/22 10:55 03/14/22 07:58 03/14/22 05:30 03/14/22 05:30 03/14/22 05:15 03/14/22 05:15 03/14/22 05:00 03/14/22 05:00 03/14/22 04:45 Room Air 03/14/22 04:30 03/14/22 04:30 03/14/22 04:15 Room Air 03/14/22 04:15 03/14/22 04:00 Room Air 03/14/22 04:00 03/14/22 03:45 03/14/22 03:45 03/14/22 03:30 03/14/22 03:30 03/14/22 03:15 03/14/22 03:15 03/14/22 03:00 03/14/22 03:00 03/14/22 02:45 03/14/22 02:45 03/14/22 02:30 03/14/22 03:00 03/14/22 02:02 Room Air 03/14/22 02:34 Room Air 03/14/22 01:53 03/14/22 02:15 03/14/22 02:15 03/14/22 02:08 03/14/22 00:45 03/14/22 01:53 03/14/22 00:43 03/14/22 00:43 03/14/22 00:40 03/14/22 00:34 03/14/22 00:38 Room Air 03/14/22 00:32 Room Air 03/14/22 00:32 Room Air 03/14/22 00:32 Room Air PG Care Time/CCT Total # of Minutes Spent Total Time Spent with Patient: Total time spent is greater than 50% in coordination of care (as documented) at patient's floor/unit and/or counseling patient: Coding Level of Care Code 05139 Subseq Hosp Care Lvl 3 Diagnoses CAD (coronary artery disease) I25.10
--- NOTE | 2022-03-14 11:14 | XCELERA ---
[id number]
[2022-03-14] MEDS ORDERED: METOPROLOL TARTRATE 25 MG TAB PO ONE (11:19)
[2022-03-14] MEDS ORDERED: CLOPIDOGREL BISULFATE 75MG Homepack PO ONE (11:21)
[2022-03-14] MEDS: TICAGRELOR 90 MG TAB PO SCH ×2 (12:55→22:56)
--- NOTE | 2022-03-14 15:47 | Electrocardiogram Report ---
Test Reason : Blood Pressure : / mmHG Vent. Rate : 080 BPM Atrial Rate : 080 BPM P-R Int : 114 ms QRS Dur : 100 ms QT Int : 402 ms P-R-T Axes : 039 044 086 degrees QTc Int : 463 ms Normal sinus rhythm with sinus arrhythmia ST elevation consider inferior injury or acute infarct ACUTE DE / STEMI Consider right ventricular involvement in acute inferior infarct Abnormal ECG No previous ECGs available Confirmed by Bayron Hector ([id number]) on 03/14/2022 3:47:05 PM Referred By: REFERRED SELF Confirmed By:Bayron Hector
--- NOTE | 2022-03-14 15:49 | Electrocardiogram Report ---
Test Reason : Blood Pressure : / mmHG Vent. Rate : 097 BPM Atrial Rate : 097 BPM P-R Int : 116 ms QRS Dur : 096 ms QT Int : 368 ms P-R-T Axes : 048 040 081 degrees QTc Int : 467 ms Poor data quality, interpretation may be adversely affected Normal sinus rhythm Inferior infarct , possibly acute ACUTE FL / STEMI Abnormal ECG When compared with ECG of 14-MAR-2022 00:35, (unconfirmed) ST less elevated in Inferior leads ST no longer depressed in Anterior leads T wave inversion no longer evident in Anterior leads Confirmed by Bayron Hector ([id number]) on 03/14/2022 3:48:44 PM Referred By: REFERRED SELF Confirmed By:Bayron Hector
--- NOTE | 2022-03-14 18:57 | Communication Note ---
Date of Service: March 14, 2022 The patient was seen and examined but admitted the same day therefore not be billing for this encounter. No current signs or symptoms of alcohol withdrawal. The patient has no interest in alcohol rehabilitation. He smokes 1 pack a day and reportedly having nicotine withdrawal headaches at present time. He denies any chest pain or shortness of breath. Moderate inferior hypokinesis on echocardiogram. Start nicotine patch 21 mg.
[2022-03-14] MEDS: NICOTINE 21 MG/24 HR TDSY TD SCH (19:45)
--- NOTE | 2022-03-14 20:17 | Billing Data ---
Date of Service March 14, 2022 Coding Level of Care Code Critical Care 1st - mins
[2022-03-15 05:32] LABS: Basophils # (auto) 0.04 K/uL (0-0.2); Basophils % (auto) 0.4 %; Eosinophils # (auto) 0.13 K/uL (0-0.50); Eosinophils % (auto) 1.3 %; Hematocrit (blood only) 46.6 % (40.1-51.0); Immature Granulocytes # (auto) 0.04 K/uL (0.00-0.02); Immature Granulocytes % (auto) 0.4 %; Lymphocytes # (auto) 3.01 K/uL (1.2-3.4); Lymphocytes % (auto) 29.8 %; Mean Corpuscular Hgb Conc 34.3 g/dL (32.0-36.0); Mean Corpuscular Volume 87.3 fL (80.0-100.0); Monocytes # (auto) 0.69 K/uL (0.24-0.82); Monocytes % (auto) 6.8 %; Neutrophils # (auto) 6.18 K/uL (1.4-6.5); Neutrophils % (auto) 61.3 %; Platelet Count 250 K/uL (130-400); RDW Coefficient of Variation 13.7 % (11.5-14.5); RDW Standard Deviation 43.4 fL (36.4-46.3); Red Blood Count 5.34 M/uL (4.63-6.08); White Blood Count 10.09 K/ul (4.8-10.8)
[2022-03-15 05:56] LABS: BUN Creatinine Ratio 16.5 (10-20); Calcium 9.2 mg/dl (8.5-10.1); Creatinine Clr Calc Pharmacy 121.5 ml/min; Est GFR (African American) 120.3 ml/min; Est GFR (Non-African American) 103.8 ml/min; Potassium 4.1 mmol/L (3.5-5.1)
[2022-03-15] MEDS ORDERED: CLOPIDOGREL BISULFATE 300 MG TAB PO ONE (08:00)
[2022-03-15] MEDS: ASPIRIN 81 MG ECTAB PO SCH (08:43)
[2022-03-15] MEDS: PANTOprazole 40 MG TAB PO SCH (08:44)
[2022-03-15] MEDS: METOPROLOL TARTRATE 25 MG TAB PO SCH (08:44)
[2022-03-15] MEDS: ATORVASTATIN 40 MG TAB PO SCH (08:45)
[2022-03-15] MEDS: lisinopril 5 MG TAB PO SCH (08:45)
[2022-03-15] MEDS: FOLIC ACID 1 MG TAB PO SCH (08:45)
[2022-03-15] MEDS: THIAMINE HCL 100 MG TAB PO SCH (08:45)
[2022-03-15] MEDS: NICOTINE 21 MG/24 HR TDSY TD SCH (08:47)
[2022-03-15] MEDS ORDERED: CLOPIDOGREL BISULFATE 75 MG TAB PO ONE (11:00)
--- NOTE | 2022-03-15 11:21 | Discharge Summary ---
Date of Service March 15, 2022 Admission HPI Per Admitting Provider Bryon Elise is a 46-year-old male with no known past medical history who presented earlier tonight as a heart alert. He was evaluated by cardiology and found to have an inferior STEMI. Recommendation was made to proceed with emergent cardiac catheterization and primary PCI. Catheterization found 100% mid RCA occlusion as well as severe nonculprit CAD with 50 to 60% left main disease extending into LAD/circumflex, 50% ostial LAD, 50% mid LAD, 50% ostial circumflex. Now status post successful PCI of proximal to mid RCA with 3 overlapping ALEC. The patient was seen at bedside and was awake/alert and conversing appropriately. He stated that he did not have any current chest pain, shortness of breath, headache, dizziness, nausea, vomiting, abdominal pain, weakness, numbness, tingling. He did admit that he is a heavy drinker of at least 6 beers daily. States that he did have about 8-10 beers before presenting to the ED tonight. Principal Diagnosis ST elevation myocardial infarction Discharge Exam Constitutional WD/WN, vitals as above Respiratory normal respiratory effort, lungs clear to auscultation Cardiovascular RRR, no murmur, no edema Gastrointestinal (Abdomen) normal bowel sounds, soft, nontender, no hepatosplenomegaly Skin no rashes, warm and dry Psychiatric A+Ox3, euthymic affect Discharge Data Allergies Allergy/AdvReac Type Severity Reaction Status Date / Time No Known Allergies Allergy Unverified 03/14/22 03:12 Consultations 03/14/22 01:53 Consult Cardiac Rehabilitation Routine Procedures Performed Operation Date: 03/14/22 01:00 Actual Procedures p Drug Eluting Stent SGl Vessel - Raz Salas MD p Aspiration/PCI w/ALEC for Stemi - Raz Salas MD s Cath, Left with Cors and Vent - Raz Salas MD s Cineradiography w/Routine Exam - Raz Salas MD Ordered Studies 03/14/22 00:48 CL Cath Imgs for PACS use only Stat Hospital Course (1) STEMI (ST elevation myocardial infarction): Bryon Elise is a 46 year old male admitted to [facility] from March 14 -2021 due to chest pain. He was diagnosed with an ST elevation myocardial infarction (STEMI). This was treated with emergent stent placement with three overlapping drug-eluting stent from the proximal to distal right coronary artery. He was observed in the intensive care unit following this with no concerning rhythm abnormalities. He was started on aspirin and clopidogrel for antiplatelets. He was also started on metoprolol and lisinopril for cardiac restructuring. He was started on atorvastatin to reduce further plaque formation (LDL 155). He should follow up with cardiology for cardiac rehabilitation with only light activity until then. Smoking cessation will be essential in reducing his cardiovascular risk moving forward and he was advised to call [phone] QUIT NOW) for help with quitting smoking as this is his largest modifiable risk to helping reduce the risk of further heart attacks. He was started on pantoprazole to help reduce the risk of gastritis and gastric ulcers given antiplatelets as above and alcohol use. Recommend taking this for 30 days and following up with his primary care provider to decide whether this is needed longer term. We discussed alcohol cessation and recommend only stopping on the advice of his primary care physician due to concern for alcohol withdrawal. Recommend taking thiamine and folic acid supplementation due to common deficiencies of these with chronic alcohol use. Total Time Total Time Spent Total Time Spent (In Minutes): 40 Discharge Plan Discharge Items Patient Disposition: Home - Self-Care Reason For Visit: STEMI Discharge Diagnosis: Heart attack [ST elevation myocardial infarction (STEMI)] Activity: Per Instructions section Non-emergency contact: Primary Care Provider and [employer] Manager Call non-emergency contact if: you have any medication questions and your symptoms worsen Follow-up/Referrals: Hany Ricks CRNP [Primary Care Provider] - 04/29/22 9:10 am (Arrive 15 minutes early) Raz Salas MD [Physician] - 04/03/22 2:30 pm PCPGOPAL [Physician] - Diet: Heart Healthy Addtl Attending Provider Instructions: You were admitted to [facility] from March 14 -2021 due to chest pain. You were diagnosed with an ST elevation myocardial infarction (STEMI) which is a type of heart attack. This was treated with emergent stent placement with three overlapping drug-eluting stent from the proximal to distal right coronary artery. You were observed in the intensive care unit following this. You have been started on two antiplatelet medications (aspirin and clopidogrel) which are essential to stop a clot forming in the stent and causing another heart attack. You were also started on metoprolol and lisinopril to help with the rebuilding of your heart muscle. You have been started on atorvastatin to reduce your cholesterol to reduce further plaque formation. Please follow up with cardiology for ongoing management and cardiac rehab - only light activity recommended until you have done cardiac rehab. Please call ([phone] QUIT NOW) for help with quitting smoking as this is your largest modifiable risk to helping reduce the risk of further heart attacks. Please follow up with your primary care provider for continued help to quit smoking. You have been started on pantoprazole to help reduce the risk of smomach bleeding given new antiplatelets as above and alcohol use. Recommend taking this for 30 days and following up with your primary care provider to decide whether this is needed longer term. We discussed alcohol cessation and recommend only stopping on the advice of your physician due to concern for alcohol withdrawal. Recommend taking thiamine and folic acid supplementation as these are commonly low in patients who drink alcohol daily. Pending Studies at Discharge: No Stand-Alone Forms: My [facility], Smoking Cessation Medications and DC Order Prescriptions: New thiamine HCl (vitamin B1) 100 mg Tablet 100 mg PO QAM Qty: 30 0RF clopidogrel 75 mg Tablet 75 mg PO DAILY Qty: 30 0RF aspirin 81 mg Tablet,Delayed Release (Dr/Ec) 81 mg PO QAM Qty: 30 0RF pantoprazole 40 mg Tablet,Delayed Release (Dr/Ec) 40 mg PO QAM Qty: 30 0RF folic acid 1 mg Tablet 1 mg PO QAM Qty: 30 0RF lisinopril [Zestril] 5 mg Tablet 5 mg PO QAM Qty: 30 0RF metoprolol tartrate 25 mg Tablet 25 mg PO BID Qty: 60 0RF atorvastatin 80 mg tablet 80 mg PO DAILY Qty: 30 0RF Discharge Orders: Discharge Order (Routine); Ordered 03/15/22 Ordered By: Iain Leslie/Other Patient Handouts: Planning to Quit Smoking, Heart Attack Dc, Heart Attack: Leaving the Hospital Admission Data Admit Date/Time: 03/14/22 01:53 Attending Provider: Iain Donahue Admit Provider: Raz Salas Primary Care Provider: Hany Ricks Other Interventions: Discharge Summary Assessment (RN) Last Done: 03/15/22 13:55 Coding Level of Care Code D/C DAY MANAGEMENT >30 MINS Diagnoses STEMI (ST elevation myocardial infarction) I21.3 Involved coronary artery: unspecified coronary artery
--- NOTE | 2022-03-15 11:23 | Cardiology Progress Note ---
Date of Service March 15, 2022 Assessment & Plan (1) CAD (coronary artery disease): Plan: -acute mid RCA occlusion at time of presentation. -3 ALEC placed at that location. -50-60% LM, 50% oLAD, 50%mLAD, 50% oLCx. -referral to CT surgery to consider CABG. -continue metoprolol tartrate, lisinopril, atorvastatin, clopidogrel, and aspirin. -follow-up with Dr. Salas as an outpatient. Admission and Anticipated Discharge Date Admission Date: March 14, 2022 Subjective The patient is resting comfortably in bed without complaints of chest pain or dyspnea. He is anxious for hospital discharge. He understands that he will require a consultation with CT surgery. Physical Exam Physical Exam: In general this is a well-developed well-nourished white male in no acute distress. HEENT exam is negative. Neck is supple with full carotid upstrokes. There are no carotid bruits. Jugular venous pressure is flat at 90. There is no thyromegaly. Cardiovascular exam reveals a regular rhythm with a normal S1 and S2. No S3, S4, or murmurs are noted. Lungs are clear without rales, rhonchi, or wheezes. Abdomen is soft and nontender without bruits. Extremities reveal intact radial artery and posterior tibial pulses bilaterally. There is no peripheral edema. Results & Data ([facility]) Vital Signs (Past 12 Hours) Vital Signs Temp Pulse Pulse Resp BP Pulse Ox O2 Del Method 03/15/22 08:00 76 25 H 03/15/22 07:00 67 19 03/15/22 04:00 36.7 C 80 14 100/54 L 97 Room Air 03/15/22 00:00 66 Diagnostic Findings property assessment monitor is benign. PG Care Time/CCT Total # of Minutes Spent Total Time Spent with Patient: Total time spent is greater than 50% in coordination of care (as documented) at patient's floor/unit and/or counseling patient: Coding Level of Care Code 24480 Subseq Hosp Care Lvl 3 Diagnoses CAD (coronary artery disease) I25.10
[2022-03-16] MEDS ORDERED: CLOPIDOGREL BISULFATE 75 MG TAB PO SCH ×2 (09:00)
== END 2022-03-15 17:30 | disposition home or self-care (01) | DRG 247 ==
LOC: ED 00:29 → 1E 00:50 → CC 00:50 → SUATTDRO 01:53 → 1E 01:53